=== PATIENT | female | born 1960 | race Caucasian/White ===

== ENCOUNTER → 2018-03-09 | Day surgery (SDC) | payer OTHER ==
[2018-03-05 12:13] LABS: BASOPHILS # (AUTO) 0.1 (0.0-0.1); BASOPHILS % 0.8 % (0.0-1.0); EOSINOPHILS # (AUTO) 0.3 (0.0-0.4); EOSINOPHILS % 3.1 % (0.0-6.0); HEMOGLOBIN 11.4 g/dL (12.0-16.0); LYMPHOCYTES # (AUTO) 1.5 (1.0-3.2); LYMPHOCYTES % 14.9 % (18.0-39.1); MEAN CORPUSCULAR HGB CONC 29.2 g/dL (31-35); MEAN CORPUSCULAR VOLUME 85.5 fL (81-99); MONOCYTES # (AUTO) 0.5 (0.2-0.8); MONOCYTES % 4.8 % (4.4-11.3); NEUTROPHILS # (AUTO) 7.9 (2.1-6.9); NEUTROPHILS % 75.9 % (38.7-80.0); PLATELET COUNT 323 x10e3/uL (140-360); RED BLOOD COUNT 4.56 x10e6/uL (3.6-5.1); RED CELL DISTRIBUTION WIDTH 16.9 % (11.7-14.4)
[2018-03-05 12:50] LABS: ANION GAP 14.8 mmol/L (8-16); BLOOD UREA NITROGEN 10 mg/dL (7-26); BUN/CREATININE RATIO 14 (6-25); CALCIUM 9.2 mg/dL (8.4-10.2); CARBON DIOXIDE 25 mmol/L (22-29); CHLORIDE 104 mmol/L (98-107); CREATININE, SERUM 0.72 mg/dL (0.57-1.11); EST GLOMERULAR FILTRATION RATE > 60 ML/MIN (60-); GLUCOSE 105 mg/dL (74-118); POTASSIUM 3.8 mmol/L (3.5-5.1); SODIUM 140 mmol/L (136-145)
[~2018-03-09] MED LIST: ASPIRIN81 MG; B12; BENADRYL25 M1 PO; CEFTRIAXONE SOD 1 GM VIAL ONE; CYMBALTA30 MG; CYMBALTA60 MG; DEXAMETHASONE SOD PHOS INJ 4 MG/ML VIAL ONE; ELIQUIS; FENTANYL CITRATE/PF 100MCG/2 ML INJ ONE; FEOSOL; FLONASE; FLONASE IH; GLYCOPYRROLATE INJ 1MG/ 5 ML SYR ONE; IOPAMIDOL 610MG/1ML 300 MG/ML VIAL IV ONE; IRON PO; LEVOTHYROXINE75 MCG PO; LIDOCAINE HCL 2% LOCAL INJ 5 ML SDV VIAL INJ ONE; LISINOPRIL-HCT1 EAC1 PO; MELATONIN3 M1 PO; MELATONIN5 M2; MIDAZOLAM HCL 2 MG/2 ML VIAL ONE; MONTELUKAST SOD10 MG PO; MORPHINE SULFAT30 M2 PO; MORPHINE SULFATE; MORPHINE SULFATE 2 MG/ML SYR ONE; MS CONTIN15 MG PO; NEOSTIGMINE 5 MG/5ML SYR ONE; NORCO 10-325 T1 EACH; ONDANSETRON HCL INJ 2 MG/ML VIAL ONE; OXYBUTYNIN CHLOR5 MG PO; PANTOPRAZOLE SO40 MG PO; PROPOFOL IV EMULSION 10 MG/ML 20 ML VIAL ONE; ROBITUSSIN COU118 ML PO; ROCURONIUM BROMIDE 10 MG/ML 5ML VIAL ONE; ROPINIROLE HC0.25 MG PO; SEVOFLURANE INHAL SOLN 250 ML PEN BTL ONE; SIMVASTATIN40 MG PO; SOTALOL80 MG PO; SUCCINYLCHOLINE 200 MG/10 ML SYR ONE; SUCRALFATE1 GM PO; TIZANIDINE HCL4 M1 PO; TOPIRAMATE25 MG PO; VENTOLIN HFA18 GM; VIT B12 PO
--- NOTE | 2018-03-09 07:20 | Diagnostic Imaging Report ---
PROCEDURE:X-RAY ABDOMEN - KUB COMPARISON:None. INDICATIONS:PRE-OP CALCULUS KIDNEY FINDINGS: Limited evaluation due to portable technique and patient body habitus. No suspicious calcifications project over the renal shadows or expected ureteral courses. Bowel gas pattern shows no dilated, air-filled loops of bowel. Lumbosacral spinal fusion hardware. Regional skeletal structures are otherwise intact with multilevel degenerative disc changes. Healed fracture right lateral seventh rib partially visualized. No mass effect or organomegaly. CONCLUSION: No plain film evidence of urolithiasis. Dictated by: Ming Dumont M.D. on 03/09/2018 at 7:29 Electronically approved by: Ming Dumont M.D. on 03/09/2018 at 7:29
[2018-03-09 09:20] VITALS: BP 140/88
--- NOTE | 2018-04-30 00:17 | Operative Report ---
DATE OF PROCEDURE: March 09, 2018 PREOPERATIVE DIAGNOSES: 1. Right nephrolithiasis. 2. Hematuria. 3. Urinary tract infections. 4. Mixed-type urinary incontinence. POSTOPERATIVE DIAGNOSES: 1. Right nephrolithiasis. 2. Hematuria. 3. Urinary tract infections. 4. Mixed-type urinary incontinence. 5. Grade 2 rectocele. 6. Atrophic (senile) vaginitis. OPERATIONS PERFORMED: 1. Cystourethroscopy with bilateral ureteral catheterization and retrograde ureteropyelography (separate procedure performed for the hematuria and urinary tract infections). 2. Interpretation of retrograde ureteropyelography. 3. Supervision of fluoroscopy, no radiologist present. 4. Right ureteropyeloscopy with holmium laser lithotripsy and insertion of stent (separate procedure performed for the nephrolithiasis). 5. Radiological services for supervision and interpretation of ureteroscopy. ANESTHESIA: General. COMPLICATIONS: None. CLINICAL SUMMARY: Erin López is a 57-year-old woman with right nephrolithiasis, urinary tract infections, and hematuria. She is brought for the above procedures. She is aware of the risks of bleeding, infection, injury to adjacent structures, need for additional procedures, and elected to proceed. This procedure was made challenging by the fact that the patient is 5 foot tall and weighs 335 pounds. The patient also understands that she greatly increased risk for anesthesia and perioperative complications. She also understands that her weight eliminates the choice of having lithotripsy for management of her stones. She understands she will need additional procedures to remove her stent. OPERATIVE PROCEDURE IN DETAIL: Informed consent was verified. This patient was properly identified, taken to the operating room, and placed on the cystoscopy table in supine position. Anesthesia was uneventfully begun. After adequate anesthesia, the patient was placed in dorsal lithotomy position with all pressure points well padded. Her genitalia were prepared and draped in usual sterile fashion. The 22.5-Hungarian cystoscope sheath was inserted into patient's urethra and the bladder was drained. Panendoscopy revealed no suspicious mucosal lesions, no tumors, no stones, and no diverticula. Normally positioned and configured ureteral orifices were identified. A ureteral catheter was used to cannulate the left ureter and retrograde ureteral pyelograms were performed. It was then inserted into the right ureter and retrograde ureteral pyelograms were performed. Interpretation of retrograde ureteropyelography: Contrast was instilled in retrograde fashion bilaterally. The left side was unremarkable. There were no tumors, no stones, and no diverticula. Unobstructed drainage was observed. The right side exhibited filling defects, but there was no hydronephrosis. There was rather significant back hardware noted from patient's prior back surgery. A guidewire was then placed into the right ureter and guided to the level of the patient's kidney. Flexible ureteroscope was then brought up over the guidewire. It was brought over up into the right kidney where we identified the large stone. We proceeded with performing holmium laser lithotripsy until smaller fragments were obtained. The ureteroscope was withdrawn, and with cystoscopic and fluoroscopic guidance, a right-sided indwelling ureteral stent was placed. It was coiled in patient's kidney as well as patient's bladder. The patient's bladder was drained. The cystoscope was withdrawn. Pelvic examination under anesthesia, which was very limited by the patient's body habitus, revealed a grade 2 rectocele with atrophic vaginitis. No abnormal palpable pelvic masses could be appreciated. The patient was then uneventfully reversed from anesthesia and taken to recovery room in stable condition. Explicit postop instructions were given. Will plan to return the patient to the operating room to remove her stent as well as evaluate and manage any residual stones. Job#: [id number] cc:ANDRE HAMPTON MD
== END | disposition home or self-care (01) ==
LOC: OR 05:06
PROVIDERS: ATTEND Urology
DX: N20.0 Calculus of kidney (principal); N39.0 Urinary tract infection, site not specified; N39.46 Mixed incontinence; N81.6 Rectocele; N95.2 Postmenopausal atrophic vaginitis; R35.1 Nocturia; G89.29 Other chronic pain; I25.10 Atherosclerotic heart disease of native coronary artery without angina pectoris; J44.9 Chronic obstructive pulmonary disease, unspecified; G47.33 Obstructive sleep apnea (adult) (pediatric); I11.0 Hypertensive heart disease with heart failure; I50.9 Heart failure, unspecified; I48.91 Unspecified atrial fibrillation; E03.9 Hypothyroidism, unspecified; E66.01 Morbid (severe) obesity due to excess calories; R11.0 Nausea; Z88.2 Allergy status to sulfonamides; Z88.8 Allergy status to other drugs, medicaments and biological substances; Z88.6 Allergy status to analgesic agent; Z91.041 Radiographic dye allergy status; Z88.1 Allergy status to other antibiotic agents; Z91.048 Other nonmedicinal substance allergy status; Z79.82 Long term (current) use of aspirin; Z79.02 Long term (current) use of antithrombotics/antiplatelets; Z99.3 Dependence on wheelchair; Z68.44 Body mass index [BMI] 60.0-69.9, adult; Z95.5 Presence of coronary angioplasty implant and graft; Z86.718 Personal history of other venous thrombosis and embolism; Z86.711 Personal history of pulmonary embolism; Z84.1 Family history of disorders of kidney and ureter
CPT/HCPCS: 36415; 52356; 74420; 80048; 83970; 84550; 85025; C2617; J0696; J1100; J2001; J2250; J2270; J2405; J2704; J3490; Q9967; 74018

== ENCOUNTER → 2018-05-06 | Day surgery (SDC) | payer OTHER ==
[2018-05-04 16:30] LABS: BASOPHILS # (AUTO) 0.1 (0.0-0.1); BASOPHILS % 0.9 % (0.0-1.0); EOSINOPHILS # (AUTO) 0.3 (0.0-0.4); EOSINOPHILS % 3.2 % (0.0-6.0); HEMATOCRIT 42.7 % (34.2-44.1); HEMOGLOBIN 12.9 g/dL (12.0-16.0); LYMPHOCYTES # (AUTO) 1.9 (1.0-3.2); LYMPHOCYTES % 21.8 % (18.0-39.1); MEAN CORPUSCULAR HEMOGLOBIN 26.4 pg (28-32); MEAN CORPUSCULAR HGB CONC 30.2 g/dL (31-35); MEAN CORPUSCULAR VOLUME 87.3 fL (81-99); MONOCYTES # (AUTO) 0.5 (0.2-0.8); MONOCYTES % 5.8 % (4.4-11.3); NEUTROPHILS # (AUTO) 5.8 (2.1-6.9); NEUTROPHILS % 68.1 % (38.7-80.0); PLATELET COUNT 416 x10e3/uL (140-360); RED BLOOD COUNT 4.89 x10e6/uL (3.6-5.1); RED CELL DISTRIBUTION WIDTH 18.6 % (11.7-14.4)
--- NOTE | 2018-05-04 16:34 | Diagnostic Imaging Report ---
EXAMINATION: PA and lateral views of the chest. COMPARISON: None CLINICAL HISTORY: Preadmission, ureteral stent removal DISCUSSION: Lines/tubes: None. Lungs: Lungs are moderately inflated. Prominence of the central pulmonary vasculature. No consolidation or edema. Pleura: No no pleural effusion or pneumothorax. Heart and mediastinum: The cardiomediastinal silhouette is normal. Bones and soft tissues: No acute bony abnormalities. Left shoulder arthroplasty. IMPRESSION: No acute cardiopulmonary abnormalities. Signed by: Dr. Ricardo Egan M.D. on 05/04/2018 4:31 PM
[2018-05-04 16:56] LABS: ALANINE AMINOTRANSFERASE 8 IU/L (0-55); ALBUMIN/GLOBULIN RATIO 0.7 (0.8-2.0); ALKALINE PHOSPHATASE 117 IU/L (40-150); ANION GAP 14.5 mmol/L (8-16); BLOOD UREA NITROGEN 15 mg/dL (7-26); BUN/CREATININE RATIO 18 (6-25); CALCIUM 9.4 mg/dL (8.4-10.2); CARBON DIOXIDE 25 mmol/L (22-29); CHLORIDE 104 mmol/L (98-107); CREATININE, SERUM 0.83 mg/dL (0.57-1.11); EST GLOMERULAR FILTRATION RATE > 60 ML/MIN (60-); GLUCOSE 94 mg/dL (74-118); POTASSIUM 4.5 mmol/L (3.5-5.1); SODIUM 139 mmol/L (136-145)
[~2018-05-06] MED LIST changes: +BELLADONNA/OPIUM 60 MG SUPP PR ONE; -GLYCOPYRROLATE INJ 1MG/ 5 ML SYR ONE; +KETAMINE HCL INJ 50 MG/ML 10 ML VIAL ONE; -MORPHINE SULFATE 2 MG/ML SYR ONE; +MORPHINE SULFATE INJ 4 MG/ML INJ ONE; -NEOSTIGMINE 5 MG/5ML SYR ONE; -ROCURONIUM BROMIDE 10 MG/ML 5ML VIAL ONE; -SUCCINYLCHOLINE 200 MG/10 ML SYR ONE
--- OUTSIDE RECORDS SUMMARY | 2018-05-06 07:04 | XMS REPORT ---
Author Author [facility] Address Unknown Phone Unavailable Care Team Providers Care Braiding Machine Tender Name Role Phone BEVERLEY COTTRELL Unavailable Unavailable Problems This patient has no known problems. Allergies, Adverse Reactions, Alerts This patient has no known allergies or adverse reactions. Medications This patient has no known medications. Results Test Description Test Time Test Comments Text Results Atomic Results Result Comments CHEST 2 VIEWS 2018-05-04 16:29:00 [place] [id number] Patient Name: ARTEMIO MCKAY MR #: [id number] : 1960 Age/Sex: 57/F Req #: [id number] Adm Physician: Ordered by: BEVERLEY COTTRELL MD Report #: [id number] Location: OR Room/Bed: Procedure: [id number] DX/CHEST 2 VIEWS Exam Date: 05/04/18 Exam Time: 1611 REPORT STATUS: Signed EXAMINATION: PA and lateral views of the chest. COMPARISON: None CLINICAL HISTORY: Preadmission, ureteral stent removal DISCUSSION: Lines/tubes: None. Lungs: Lungs are moderately inflated. Prominence of the central pulmonary vasculature. No consolidation or edema. Pleura: No no pleural effusion or pneumothorax. Heart and mediastinum: The cardiomediastinal silhouette is normal. Bones and soft tissues: No acute bony abnormalities. Left shoulder arthroplasty. IMPRESSION: No acute cardiopulmonary abnormalities. Signed by: Dr. Mariajose Galicia M.D. on 05/04/2018 4:31 PM Dictated By: MARIAJOSE GALICIA MD 30 Transcribed By: SHARMILA on 05/04/181630 COPY TO: BEVERLEY COTTRELL MD ABDOMEN-1VIEW (KUB) 2018-03-09 07:29:00 [place] [id number] Patient Name: ARTEMIO MCKAY MR #: [id number] : 1960 Age/Sex: 57/F Req #: [id number] Adm Physician: Ordered by: BEVERLEY COTTRELL MD Report #: [id number] Location: OR Room/Bed: Procedure: [id number] DX/ABDOMEN-1VIEW (KUB) Exam Date: 03/09/18 Exam Time: 0648 REPORT STATUS: Signed PROCEDURE: X-RAY ABDOMEN - KUB COMPARISON: None. INDICATIONS: PRE-OP CALCULUS KIDNEY FINDINGS: Limited evaluation due to portable technique and patient body habitus. No suspicious calcifications project over the renal shadows or expected ureteral courses. Bowel gas pattern shows no dilated, air-filled loops of bowel. Lumbosacral spinal fusion hardware. Regional skeletal structures are otherwise intact with multilevel degenerative disc changes. Healed fracture right lateral seventh rib partially visualized. No mass effect or organomegaly. CONCLUSION: No plain film evidence of urolithiasis. Dictated by: Teresita De La Paz M.D. on 03/09/2018 at 7:29 Electronically approved by: Teresita De La Paz M.D. on 03/09/2018 at 7:29 Dictated By: TERESITA DE LA PAZ MD 8 Transcribed By: JANELLE on 03/09/18728 COPY TO: BEVERLEY COTTRELL MD
--- NOTE | 2018-05-06 08:58 | Diagnostic Imaging Report ---
PROCEDURE:X-RAY ABDOMEN - KUB COMPARISON:KUB 03/09/18. INDICATIONS:PREOPERATIVE XRAY FOR KIDNEY STONE SURGERY FINDINGS: Limited exam due to body habitus and portable technique. Right internal ureteral stent is noted with proximal aspect overlying the expected location of the renal pelvis and the distal aspect overlying the expected location of the bladder. No definite calcifications suspicious for urinary stones are visualized. Non-obstructive bowel gas pattern. Lumbosacral spinal fixation hardware is noted. Degenerative changes of the visualized spine and bilateral hips. CONCLUSION: Right internal ureteral stent as above. No evidence of urinary stone, although evaluation is limited by body habitus and portable technique. Dictated by: SVITLANA MARY M.D. on 05/06/2018 at 9:08 Electronically approved by: SVITLANA MARY M.D. on 05/06/2018 at 9:08
[2018-05-06 11:26] VITALS: BP 170/90
--- NOTE | 2018-05-07 01:04 | Operative Report ---
DATE OF PROCEDURE: May 06, 2018 PREOPERATIVE DIAGNOSES 1. Right nephrolithiasis. 2. Right indwelling ureteral stent. POSTOPERATIVE DIAGNOSES 1. Right nephrolithiasis. 2. Right indwelling ureteral stent. 3. Distal right ureteral stricture. 4. Hydronephrosis. 5. Grade-1 cystocele. 6. Grade-1 rectocele. 7. Atrophic (senile) vaginitis. OPERATIONS PERFORMED 1. Cystourethroscopy with complicated removal of right indwelling ureteral stent (separate procedure performed for diagnosis of stent done with separate scope). 2. Right semirigid ureteroscopy with dilation of distal ureteral stricture (separate procedure for the diagnosis of stricture). 3. Repeated and innumerable right ureteropyeloscopy with stone manipulation and extraction (separate procedure performed for over a dozen stones from the right kidney) (separate procedure performed for the diagnosis of stones). 4. Radiological services for supervision and interpretation of ureteroscopy. 5. Cystourethroscopy with insertion of right indwelling ureteral stent (separate procedure performed to relieve the hydronephrosis). 6. Interpretation of retrograde ureteropyelography. 7. Supervision of fluoroscopy. No radiologist present. 8. Pelvic examination under anesthesia. ANESTHESIA: General. COMPLICATIONS: None. CLINICAL SUMMARY: Erin López is a 57-year-old woman, who had severe right-sided nephrolithiasis. She had 3 large stones, which underwent Holmium laser lithotripsy and stent placement. Patient was brought to the operating room today for removal of her stent and hopefully, render her stone-free. The patient's original surgery date had to be rescheduled due to illness on the part of the patient. She is aware of the risks of bleeding, infection, injury to adjacent structures, need for additional procedures and elected to proceed. OPERATIVE PROCEDURE IN DETAIL: Informed consent was verified. This patient was properly identified, taken to the operating room, placed on the cystoscopy table in supine position. Anesthesia was uneventfully begun. The patient was then carefully and gently repositioned in dorsal lithotomy position with all pressure points well padded. Her genitalia were prepared and draped in usual sterile fashion. A 22.5-Kenyan cystoscope sheath with the obturator in place was atraumatically inserted in patient's urethra and the bladder was drained. Panendoscopy of urinary bladder revealed no suspicious mucosal lesions, no tumors, no stones, and no diverticula. We did identify a stent emerging from the right ureteral orifice. It was mildly encrusted. A guidewire was then placed alongside the stent and guided to the level of patient's kidney. The stent was then grasped completely, removed, and discarded. Semi-rigid ureteroscope was then placed alongside the guidewire and guided into the right ureter. The distal 5 cm of ureter were rather narrowed. We gently dilated across this with a secondary guidewire with the ureteroscope and more proximally the ureter did not exhibit any stones or any suspicious lesions. A flexible ureteroscopy sheath was then placed over a secondary guidewire and guided to the level of patient's proximal ureter. We, thus, utilized this flexible ureteroscopy sheath to also dilate the distal ureter. We then made dozens of passes with the ureteroscope each time grasping 1 or 2 stone fragments with a Nitinol tipless basket. Once these countless ureteroscopic maneuvers were performed, we did not see any residual significantly sized stones. The fine sand that remained was irrigated to loosen it from the mucosa and all that sand material should be passable. We carefully reexamined the ureter as we exited. It did not exhibit any stones. With cystoscopic and fluoroscopic guidance, the right-sided indwelling ureteral stent was then placed. It was coiled in the patient's kidney, as well as the patient's bladder. The retaining suture was left long and taped to the left labia. Interpretation of retrograde ureteropyelography: Contrast was instilled in retrograde fashion on right hand side via the ureteroscope. It exhibited mild chronic-appearing hydronephrosis. There was no extravasation. The stent was in good position, coiled in the patient's kidney, as well as the patient's bladder at the end of the case. Due to patient's body habitus, we are unable to appreciate any filling defects upon retrograde pyelograms. Patient's bladder was drained. Cystoscope was withdrawn. Pelvic examination under anesthesia revealed grade-1 cystocele and grade-1 rectocele. There was atrophic (senile) vaginitis. No abnormal palpable pelvic masses could be appreciated. Patient was then uneventfully reversed from anesthesia and taken to recovery room in stable condition. There were no complications during this procedure. She tolerated the procedure well. Explicit postoperative instructions were given and will follow the patient up in the office. At which point in time, the stent will be removed. Job#: [id number] CQ cc:ANDRE HAMPTON MD
== END | disposition home or self-care (01) ==
LOC: OR 07:02
PROVIDERS: ATTEND Urology
DX: N20.0 Calculus of kidney (principal); Z46.6 Encounter for fitting and adjustment of urinary device; N13.5 Crossing vessel and stricture of ureter without hydronephrosis; N13.30 Unspecified hydronephrosis; N81.10 Cystocele, unspecified; N81.6 Rectocele; N95.2 Postmenopausal atrophic vaginitis; J45.909 Unspecified asthma, uncomplicated; I11.0 Hypertensive heart disease with heart failure; I25.10 Atherosclerotic heart disease of native coronary artery without angina pectoris; I50.9 Heart failure, unspecified; Z01.810 Encounter for preprocedural cardiovascular examination; Z01.812 Encounter for preprocedural laboratory examination; Z01.818 Encounter for other preprocedural examination; Z88.6 Allergy status to analgesic agent; Z88.2 Allergy status to sulfonamides; Z88.8 Allergy status to other drugs, medicaments and biological substances; Z79.82 Long term (current) use of aspirin
CPT/HCPCS: 36415; 52332; 52344; 52352; 71046; 74018; 80053; 83970; 84550; 85025; 88300; 93005; C1766; C2617; J0696; J1100; J2001; J2250; J2270; J2405; J2704; Q9967